=== PATIENT | male | born 1935 | race Caucasian/White ===

== ENCOUNTER → 2018-06-08 | Outpatient (CLI) | payer MEDICARE, OTHER ==
--- NOTE | 2018-06-08 10:31 | Diagnostic Imaging Report ---
PROCEDURE: Frontal and lateral views of the chest. COMPARISON: Patients [facility], CT, CT CHEST W/CONTRAST, 12/05/2009, 12:33. Patients [facility], DX, CHEST 2 VIEWS, 11/28/2009, 10:59. INDICATIONS: CONGESTION, WITH CHEST TIGHTNESS FOR 3 DAYS FINDINGS: Lines/tubes: Dual-lead left chest wall cardiac device. Lungs: The lungs are well inflated and clear. There is no evidence of pneumonia or pulmonary edema. Focal linear opacity in the right upper lobe extending to the hilum noted on the previous chest x-ray and CT has resolved. Pleura: There is no pleural effusion or pneumothorax. Heart and mediastinum: The heart and the mediastinum are normal. Aortic vascular calcification. Bones: No acute bony abnormality. Degenerative changes of the spine. IMPRESSION: No acute cardiopulmonary disease. Nolan Robles D.O. Dictated by: Nolan Robles D.O. on 06/08/2018 at 10:40 Electronically approved by: Nolan Robles D.O. on 06/08/2018 at 10:40
== END ==
LOC: RAD 09:42
PROVIDERS: ATTEND Internal Medicine
DX: J44.1 Chronic obstructive pulmonary disease with (acute) exacerbation (principal)
CPT/HCPCS: 71046

== ENCOUNTER → 2018-09-29 | Outpatient (CLI) | payer MEDICARE, OTHER ==
--- NOTE | 2018-09-29 16:52 | Diagnostic Imaging Report ---
EXAMINATION: CHEST 2 VIEWS INDICATION: ^Bronchitis; Chronic obstructive pulmonary disease with COMPARISON: None FINDINGS: PA and lateral views TUBES and LINES: Left-sided pacemaker with 2 intact leads. LUNGS: Lungs are well inflated. Bilateral peribronchial cuffing. Questionable focal airspace opacity in the left lateral lung base abutting the diaphragm. PLEURA: No pleural effusion or pneumothorax. HEART AND MEDIASTINUM: Cardiac size is mildly enlarged. There are atherosclerotic calcifications within the aorta. BONES AND SOFT TISSUES: No acute osseous lesion. Soft tissues are unremarkable. UPPER ABDOMEN: No free air under the diaphragm. IMPRESSION: 1. Bilateral peribronchial cuffing, which could represent viral etiology or reactive airway disease. 2. Questionable focal airspace opacity in the left lateral lung base abutting the diaphragm. Signed by: Dr. Pola Cedillo M.D. on 09/29/2018 4:49 PM
== END ==
LOC: RAD 14:55
PROVIDERS: ATTEND Internal Medicine
DX: J40 Bronchitis, not specified as acute or chronic (principal); J44.1 Chronic obstructive pulmonary disease with (acute) exacerbation
CPT/HCPCS: 71046

== ENCOUNTER → 2018-10-19 | Outpatient (CLI) | payer MEDICARE, OTHER ==
--- NOTE | 2018-10-19 15:32 | Diagnostic Imaging Report ---
EXAMINATION: CT scan of the chest without contrast. TECHNIQUE: Spiral CT images of the chest were performed from the lung apices to the level of the adrenal glands. No intravenous contrast was administered per referring physician request. Coronal and sagittal reformatted images were obtained. COMPARISON: Chest radiograph 09/29/2018 CLINICAL HISTORY:COPD, hemoptysis DISCUSSION: ABSENCE OF INTRAVENOUS CONTRAST DECREASES SENSITIVITY FOR DETECTION OF FOCAL LESIONS AND VASCULAR PATHOLOGY. LINES/TUBES: None. LUNGS AND AIRWAYS: Calcified granuloma right upper lobe. Reticular and groundglass opacities in the lower lobes compatible with subsegmental atelectasis. No gross consolidation, mass lesion, or bronchiectasis. The airways are normal, without endobronchial lesions. PLEURA: No pneumothorax or pleural effusions. HEART AND MEDIASTINUM: The thyroid gland is normal. No ectasia or aneurysmal dilatation of the thoracic aorta. Pulmonary outflow tract is of normal caliber. Aortic and mitral annular calcifications. Atherosclerotic coronary artery and great vessel origin calcifications. Normal heart size. No pericardial effusion. Left subclavian approach implantable cardiac device leads terminate in the right atrium and right ventricle. LYMPH NODES: There is no mediastinal, hilar or axillary lymphadenopathy. ABDOMEN: Visualized portions of the liver, spleen, pancreas, and adrenals are unremarkable. Partially visualized 7 cm low-attenuation lesion in the left kidney, average internal attenuation 0-5 Hounsfield units. BONES AND SOFT TISSUES: No focal soft tissue abnormalities. No osseous destructive lesions. Multilevel degenerative disc changes of the lower cervical and thoracic spine. IMPRESSION: Findings in the lung bases likely reflect subsegmental atelectasis, possibly with superimposed age-related fibrotic changes. No acute thoracic CT abnormalities. Atherosclerotic vascular disease. Partially visualized probable large left renal cyst. Suggest further evaluation with renal ultrasound. Signed by: Dr. Kostas Morley M.D. on 10/19/2018 3:28 PM
== END ==
LOC: CT 14:22
PROVIDERS: ATTEND Internal Medicine
DX: J44.9 Chronic obstructive pulmonary disease, unspecified (principal); N28.1 Cyst of kidney, acquired; Z87.01 Personal history of pneumonia (recurrent)
CPT/HCPCS: 71250

== ENCOUNTER → 2021-04-26 | Outpatient (CLI) | payer MEDICARE, OTHER ==
[~2021-04-26] MED LIST: IOPAMIDOL 300 MG/ML 15ML VIAL IT ONE; LEVOTHYROXINE88 MCG PO; LIDOCAINE HCL 1% LOCAL INJ 20 ML VIAL ONE; LOSARTAN POTAS100 MG PO; PRAVASTATIN SOD40 MG
== END ==
LOC: DX 08:17
PROVIDERS: ATTEND Internal Medicine
DX: M47.27 Other spondylosis with radiculopathy, lumbosacral region (principal)
CPT/HCPCS: 62304; 72132; 77003; J2001; Q9967

== ENCOUNTER → 2021-05-31 | Outpatient (CLI) | payer MEDICARE, OTHER ==
[~2021-05-31] MED LIST changes: -IOPAMIDOL 300 MG/ML 15ML VIAL IT ONE; -LIDOCAINE HCL 1% LOCAL INJ 20 ML VIAL ONE
== END ==
LOC: RAD 10:13
PROVIDERS: ATTEND Internal Medicine Pulmonary Disease
DX: R06.02 Shortness of breath (principal)
CPT/HCPCS: 71046

== ENCOUNTER 2022-07-15 08:18 | Inpatient (IN) | payer MEDICARE, OTHER ==
[~2022-07-15] VITALS: Ht 177.8 cm; Wt 117.9 kg
[~2022-07-15 08:18] MED LIST changes: +PRAVASTATIN SOD40 MG PO
[2022-07-15] MEDS ORDERED: ALBUTEROL/IPRATROPIUM 3 ML NEB NEB STA (08:23)
[2022-07-15] MEDS ORDERED: METHYLPREDNISOLONE SOD SUCC 125 MG/2ML VIAL IV STA (08:23)
[2022-07-15 08:43] LABS: BASOPHILS # (AUTO) 0.1 (0.0-0.1); BASOPHILS % 0.4 % (0.0-1.0); EOSINOPHILS # (AUTO) 0.2 (0.0-0.4); EOSINOPHILS % 1.5 % (0.0-6.0); HEMOGLOBIN 17.2 g/dL (14.0-18.0); LYMPHOCYTES # (AUTO) 2.7 (1.0-3.2); LYMPHOCYTES % 19.4 % (18.0-39.1); MEAN CORPUSCULAR HGB CONC 31.3 g/dL (31-35); MONOCYTES % 7.4 % (4.4-11.3); NEUTROPHILS # (AUTO) 9.8 (2.1-6.9); NEUTROPHILS % 70.8 % (38.7-80.0); PLATELET COUNT 333 x10e3/uL (140-360); RED BLOOD COUNT 5.73 x10e6/uL (4.3-5.7)
[2022-07-15] MEDS ORDERED: LASIX40 MG PO (08:51)
[2022-07-15] MEDS ORDERED: OMEPRAZOLE40 MG PO (08:51)
[2022-07-15] MEDS ORDERED: DIGOXIN125 MCG PO (08:51)
[2022-07-15] MEDS ORDERED: HYDROCHLOROTH12.5 MG PO (08:51)
[2022-07-15] MEDS ORDERED: PREDNISONE1 MG PO (08:51)
[2022-07-15] MEDS ORDERED: COREG6.25 MG PO (08:51)
[2022-07-15] MEDS ORDERED: JARDIANCE25 MG PO (08:51)
[2022-07-15] MEDS ORDERED: GABAPENTIN300 MG PO (08:51)
[2022-07-15] MEDS ORDERED: CLOPIDOGREL75 MG PO (08:51)
[2022-07-15] MEDS ORDERED: TRESIBA FL200 UNIT/1 SQ (08:51)
[2022-07-15 09:11] LABS: CREATINE KINASE MB 2.6 ng/mL (0-5.0)
[2022-07-15 09:44] LABS: ALBUMIN 3.3 g/dL (3.5-5.0); ALBUMIN/GLOBULIN RATIO 0.7 (0.8-2.0); ANION GAP 19.4 mmol/L (8-16); CALCIUM 8.9 mg/dL (8.4-10.2); CREATININE, SERUM 2.06 mg/dL (0.72-1.25); POTASSIUM 3.4 mmol/L (3.5-5.1)
[2022-07-15] MEDS ORDERED: SODIUM CHLORIDE 0.9% 500ML 500 ML IV STA (10:02)
[2022-07-15] MEDS ORDERED: SODIUM CHLORIDE 0.9% 100 ML ONE (10:21)
[2022-07-15] MEDS ORDERED: IOPAMIDOL 370 MG/ML 100 ML INFUS..BTL INJ ONE (10:22)
[2022-07-15] MEDS ORDERED: POTASSIUM CHLORIDE 20 MEQ TAB CR PO PRN (11:45)
[2022-07-15] MEDS ORDERED: SIMETHICONE 80 MG CHEW PO PRN (11:45)
[2022-07-15] MEDS ORDERED: BENZONATATE 100 MG CAP PO PRN (11:45)
[2022-07-15] MEDS ORDERED: DEXTROSE 50% SYRINGE 50 ML IV PRN ×2 (11:45)
[2022-07-15] MEDS ORDERED: HYDRALAZINE HCL 20 MG/ML VIAL IV PRN (11:45)
[2022-07-15] MEDS ORDERED: LIDOCAINE 4% PATCH TP PRN (11:45)
[2022-07-15] MEDS ORDERED: SODIUM CHLORIDE 0.9% 1000ML 1,000 ML IV SCH (11:45)
[2022-07-15] MEDS ORDERED: DIPHENHYDRAMINE HCL 25 MG CAP PO PRN (11:45)
[2022-07-15] MEDS ORDERED: ACETAMINOPHEN 325 MG TAB PO PRN (11:45)
[2022-07-15] MEDS ORDERED: DOCUSATE SODIUM 100 MG CAP PO PRN (11:45)
[2022-07-15] MEDS ORDERED: HYDROCODONE/APAP 5MG-325MG TAB PO PRN (11:45)
[2022-07-15] MEDS: ONDANSETRON HCL INJ 2MG/ML 2ML 2 MG/ML VIAL IV PRN ×2 (13:38→20:49)
[2022-07-15] MEDS ORDERED: ONDANSETRON HCL INJ 2MG/ML 2ML 2 MG/ML VIAL ONE ×2 (13:47→16:56)
[2022-07-15 14:01] LABS: CREATINE KINASE MB 2.6 ng/mL (0-5.0)
[2022-07-15] MEDS ORDERED: ONDANSETRON HCL INJ 2MG/ML 2ML 2 MG/ML VIAL IV STA (16:48)
[2022-07-15] MEDS ORDERED: ALBUTEROL SULF 0.083% NEB SOLN 3 ML NEB NEB STA (16:50)
[2022-07-15] MEDS ORDERED: PROMETHAZINE 25MG/SOD CHL 0.9% 50 ML IV ONE (16:53)
[2022-07-15] MEDS ORDERED: PROMETHAZINE 12.5MG/ NACL 0.9% 12.5 MG/50 ML BAG IV ONE (17:00)
[2022-07-15] MEDS: INSULIN LISPRO 100 UNIT/1 ML 3ML VIAL SQ SCH ×2 (17:04→22:21)
[2022-07-15 17:45] VITALS: BP 145/86
[2022-07-15 17:58] VITALS: BP 145/86
[2022-07-15] MEDS ORDERED: SODIUM CHLORIDE 0.9% 500ML 500 ML ONE (17:59)
[2022-07-15] MEDS: ENOXAPARIN SOD INJ 40 MG/0.4 ML SYR SC SCH (18:16)
[2022-07-15] MEDS: CARVEDILOL 3.125 MG TAB PO SCH (18:17)
[2022-07-15 18:33] VITALS: BP 145/86
[2022-07-15 19:55] LABS: CREATINE KINASE MB 2.5 ng/mL (0-5.0)
[2022-07-15 21:00] VITALS: BP 97/61
[2022-07-15] MEDS: PRAVASTATIN 20 MG TAB PO SCH (22:08)
[2022-07-15] MEDS: INSULIN GLARGINE 100 UNITS/ML VIAL SQ SCH (22:14)
[2022-07-16 05:55] LABS: BASOPHILS % 0.2 % (0.0-1.0); HEMATOCRIT 47.9 % (38.2-49.6); HEMOGLOBIN 16.5 g/dL (14.0-18.0); LYMPHOCYTES # (AUTO) 1.1 (1.0-3.2); LYMPHOCYTES % 10.7 % (18.0-39.1); MEAN CORPUSCULAR HEMOGLOBIN 31.5 pg (28-32); MEAN CORPUSCULAR HGB CONC 34.4 g/dL (31-35); MEAN CORPUSCULAR VOLUME 91.4 fL (81-99); MONOCYTES # (AUTO) 0.5 (0.2-0.8); MONOCYTES % 4.7 % (4.4-11.3); NEUTROPHILS # (AUTO) 8.9 (2.1-6.9); NEUTROPHILS % 83.9 % (38.7-80.0); PLATELET COUNT 324 x10e3/uL (140-360); RED BLOOD COUNT 5.24 x10e6/uL (4.3-5.7); RED CELL DISTRIBUTION WIDTH 13.2 % (11.7-14.4)
[2022-07-16 06:19] LABS: ALBUMIN 3.1 g/dL (3.5-5.0); ALBUMIN/GLOBULIN RATIO 0.7 (0.8-2.0); ANION GAP 21.7 mmol/L (8-16); CALCIUM 8.8 mg/dL (8.4-10.2); CREATININE, SERUM 2.22 mg/dL (0.72-1.25); POTASSIUM 3.7 mmol/L (3.5-5.1)
[2022-07-16] MEDS: LEVOTHYROXINE SODIUM 88 MCG TAB PO SCH (06:22)
[2022-07-16 06:29] LABS: CREATINE KINASE MB 2.6 ng/mL (0-5.0)
[2022-07-16] MEDS ORDERED: Vancomycin IV 1 GM in SODIUM CHLORIDE 0.9% 250ML 250 ML IV SCH (06:30)
[2022-07-16 08:00] VITALS: BP 97/61
[2022-07-16] MEDS: ONDANSETRON HCL INJ 2MG/ML 2ML 2 MG/ML VIAL IV PRN (08:18)
[2022-07-16] MEDS: PANTOPRAZOLE SOD 40 MG TABEC PO SCH (08:23)
[2022-07-16 08:52] VITALS: BP 109/58
[2022-07-16] MEDS ORDERED: NON-FORMULARY MEDICATION (Empagliflozin (Jardiance) 25 MG) PO SCH (09:00)
[2022-07-16] MEDS: LOSARTAN POTASSIUM 100 MG TAB PO SCH (09:00)
[2022-07-16] MEDS: CARVEDILOL 3.125 MG TAB PO SCH ×2 (09:00→18:04)
[2022-07-16] MEDS: PREDNISONE 10 MG TAB PO SCH (09:46)
[2022-07-16] MEDS: CLOPIDOGREL BISULFATE 75 MG TAB PO SCH (09:46)
[2022-07-16] MEDS: FUROSEMIDE 40 MG TAB PO SCH (09:46)
[2022-07-16] MEDS: DIGOXIN 0.125 MG TAB PO SCH ×2 (09:46→09:49)
[2022-07-16] MEDS: INSULIN LISPRO 100 UNIT/1 ML 3ML VIAL SQ SCH ×4 (09:55→20:31)
[2022-07-16] MEDS ORDERED: METOCLOPRAMIDE HCL 10 MG/2ML VIAL IV PRN (10:30)
[2022-07-16 12:40] VITALS: BP 113/61
[2022-07-16] MEDS: SODIUM CHLORIDE 0.9% 1000ML 1,000 ML IV SCH (13:13)
[2022-07-16] MEDS: METOCLOPRAMIDE HCL 10 MG TAB PO SCH ×3 (13:16→20:22)
[2022-07-16 16:54] VITALS: BP 136/84
[2022-07-16] MEDS: ENOXAPARIN SOD INJ 40 MG/0.4 ML SYR SC SCH (18:04)
[2022-07-16] MEDS: PRAVASTATIN 20 MG TAB PO SCH (20:21)
[2022-07-16] MEDS: MELATONIN 5 MG TABLET PO PRN (20:21)
[2022-07-16] MEDS: INSULIN GLARGINE 100 UNITS/ML VIAL SQ SCH (20:29)
[2022-07-16 21:00] VITALS: BP 124/63
[2022-07-16 21:12] VITALS: BP 124/63
[2022-07-17] VITALS (7 sets, daily range): BP systolic 102–140; BP diastolic 61–78
[2022-07-17 04:56] LABS: BASOPHILS % 0.2 % (0.0-1.0); EOSINOPHILS % 0.2 % (0.0-6.0); HEMATOCRIT 49.6 % (38.2-49.6); HEMOGLOBIN 15.4 g/dL (14.0-18.0); LYMPHOCYTES # (AUTO) 2.4 (1.0-3.2); LYMPHOCYTES % 18.8 % (18.0-39.1); MEAN CORPUSCULAR HEMOGLOBIN 30.3 pg (28-32); MEAN CORPUSCULAR VOLUME 97.6 fL (81-99); MONOCYTES % 7.8 % (4.4-11.3); NEUTROPHILS # (AUTO) 9.2 (2.1-6.9); NEUTROPHILS % 72.5 % (38.7-80.0); PLATELET COUNT 305 x10e3/uL (140-360); RED BLOOD COUNT 5.08 x10e6/uL (4.3-5.7); RED CELL DISTRIBUTION WIDTH 12.9 % (11.7-14.4)
[2022-07-17 05:22] LABS: ALBUMIN 2.8 g/dL (3.5-5.0); ALBUMIN/GLOBULIN RATIO 0.7 (0.8-2.0); ANION GAP 16.2 mmol/L (8-16); CALCIUM 8.4 mg/dL (8.4-10.2); CREATININE, SERUM 2.26 mg/dL (0.72-1.25); POTASSIUM 3.2 mmol/L (3.5-5.1)
[2022-07-17] MEDS: LEVOTHYROXINE SODIUM 88 MCG TAB PO SCH (06:27)
[2022-07-17] MEDS: Vancomycin IV 1 GM in SODIUM CHLORIDE 0.9% 250ML 250 ML IV SCH (08:53)
[2022-07-17] MEDS: SODIUM CHLORIDE 0.9% 1000ML 1,000 ML IV SCH (08:53)
[2022-07-17] MEDS: METOCLOPRAMIDE HCL 10 MG TAB PO SCH ×4 (08:54→22:09)
[2022-07-17] MEDS: LOSARTAN POTASSIUM 100 MG TAB PO SCH (08:54)
[2022-07-17] MEDS: FUROSEMIDE 40 MG TAB PO SCH (08:55)
[2022-07-17] MEDS: PANTOPRAZOLE SOD 40 MG TABEC PO SCH (08:55)
[2022-07-17] MEDS: CLOPIDOGREL BISULFATE 75 MG TAB PO SCH (08:55)
[2022-07-17] MEDS: PREDNISONE 10 MG TAB PO SCH (08:55)
[2022-07-17] MEDS: CARVEDILOL 3.125 MG TAB PO SCH ×2 (08:56→18:10)
[2022-07-17] MEDS: INSULIN LISPRO 100 UNIT/1 ML 3ML VIAL SQ SCH ×4 (09:03→22:13)
[2022-07-17] MEDS: ALBUTEROL/IPRATROPIUM 3 ML NEB NEB PRN ×3 (09:20→20:05)
[2022-07-17] MEDS ORDERED: GUAIFENESIN/CODEINE 5 ML LIQD PO ONE (10:00)
[2022-07-17 13:07] LABS: DIGOXIN 0.38 ng/mL (0.8-2.0)
[2022-07-17] MEDS: ENOXAPARIN SOD INJ 40 MG/0.4 ML SYR SC SCH (18:09)
[2022-07-17] MEDS: GUAIFENESIN/CODEINE 5 ML LIQD PO PRN (19:08)
[2022-07-17] MEDS: PRAVASTATIN 20 MG TAB PO SCH (22:09)
[2022-07-17] MEDS: MELATONIN 5 MG TABLET PO PRN (22:09)
[2022-07-17] MEDS: INSULIN GLARGINE 100 UNITS/ML VIAL SQ SCH (22:11)
[2022-07-18] MEDS: ALBUTEROL/IPRATROPIUM 3 ML NEB NEB PRN ×4 (02:40→19:30)
[2022-07-18] MEDS: LEVOTHYROXINE SODIUM 88 MCG TAB PO SCH (06:02)
[2022-07-18] MEDS: GUAIFENESIN/CODEINE 5 ML LIQD PO PRN (06:02)
[2022-07-18 06:07] LABS: ANION GAP 19.4 mmol/L (8-16); CALCIUM 8.5 mg/dL (8.4-10.2); CREATININE, SERUM 1.95 mg/dL (0.72-1.25); POTASSIUM 3.4 mmol/L (3.5-5.1)
[2022-07-18] MEDS: INSULIN LISPRO 100 UNIT/1 ML 3ML VIAL SQ SCH ×3 (07:30→16:30)
[2022-07-18 07:41] VITALS: BP 122/67
[2022-07-18] MEDS: METOCLOPRAMIDE HCL 10 MG TAB PO SCH ×4 (08:14→21:31)
[2022-07-18] MEDS: CLOPIDOGREL BISULFATE 75 MG TAB PO SCH (08:14)
[2022-07-18] MEDS: FUROSEMIDE 40 MG TAB PO SCH (08:14)
[2022-07-18] MEDS: PANTOPRAZOLE SOD 40 MG TABEC PO SCH (08:14)
[2022-07-18] MEDS: CARVEDILOL 3.125 MG TAB PO SCH ×2 (08:15→16:29)
[2022-07-18] MEDS: LOSARTAN POTASSIUM 100 MG TAB PO SCH (08:15)
[2022-07-18] MEDS: Vancomycin IV 1 GM in SODIUM CHLORIDE 0.9% 250ML 250 ML IV SCH (08:16)
[2022-07-18] MEDS: PREDNISONE 10 MG TAB PO SCH (08:16)
[2022-07-18 08:32] VITALS: BP 122/67
[2022-07-18] MEDS: ONDANSETRON HCL INJ 2MG/ML 2ML 2 MG/ML VIAL IV PRN (09:03)
[2022-07-18 11:38] VITALS: BP 125/75
[2022-07-18] MEDS: CEFAZOLIN SODIUM 2 GM in SODIUM CHLORIDE 0.9% 100 ML IV SCH (14:59)
[2022-07-18 15:33] VITALS: BP 136/74
[2022-07-18] MEDS: ENOXAPARIN SOD INJ 40 MG/0.4 ML SYR SC SCH (16:28)
[2022-07-18 20:00] VITALS: BP 153/97
[2022-07-18] MEDS: PRAVASTATIN 20 MG TAB PO SCH (21:30)
[2022-07-18] MEDS: MELATONIN 5 MG TABLET PO PRN (21:31)
[2022-07-19] MEDS: INSULIN LISPRO 100 UNIT/1 ML 3ML VIAL SQ SCH ×5 (02:26→23:34)
[2022-07-19] MEDS: INSULIN GLARGINE 100 UNITS/ML VIAL SQ SCH ×2 (02:27→23:34)
[2022-07-19] MEDS: CEFAZOLIN SODIUM 2 GM in SODIUM CHLORIDE 0.9% 100 ML IV SCH ×2 (02:27→15:21)
[2022-07-19] MEDS: LEVOTHYROXINE SODIUM 88 MCG TAB PO SCH (06:18)
[2022-07-19 07:34] VITALS: BP 145/81
[2022-07-19] MEDS: FUROSEMIDE 40 MG TAB PO SCH (08:14)
[2022-07-19] MEDS: PANTOPRAZOLE SOD 40 MG TABEC PO SCH (08:15)
[2022-07-19] MEDS: LOSARTAN POTASSIUM 100 MG TAB PO SCH (08:15)
[2022-07-19] MEDS: METOCLOPRAMIDE HCL 10 MG TAB PO SCH ×4 (08:15→20:48)
[2022-07-19] MEDS: PREDNISONE 10 MG TAB PO SCH (08:15)
[2022-07-19] MEDS: CLOPIDOGREL BISULFATE 75 MG TAB PO SCH (08:15)
[2022-07-19] MEDS: CARVEDILOL 3.125 MG TAB PO SCH ×2 (08:16→16:40)
[2022-07-19 08:30] VITALS: BP 145/81
[2022-07-19 11:21] VITALS: BP 137/87
[2022-07-19] MEDS: ONDANSETRON HCL INJ 2MG/ML 2ML 2 MG/ML VIAL IV PRN (13:11)
[2022-07-19] MEDS: ALBUTEROL/IPRATROPIUM 3 ML NEB NEB PRN (13:35)
[2022-07-19] MEDS: ALBUTEROL/IPRATROPIUM 3 ML NEB NEB SCH ×2 (15:15→19:50)
[2022-07-19 15:28] VITALS: BP 135/78
[2022-07-19] MEDS: ENOXAPARIN SOD INJ 40 MG/0.4 ML SYR SC SCH (16:37)
[2022-07-19 20:47] VITALS: BP 136/74
[2022-07-19] MEDS: MELATONIN 5 MG TABLET PO PRN (20:48)
[2022-07-19] MEDS: PRAVASTATIN 20 MG TAB PO SCH (20:48)
[2022-07-19 22:04] VITALS: BP 136/74
[2022-07-20] VITALS (7 sets, daily range): BP systolic 125–157; BP diastolic 71–104
[2022-07-20] MEDS: ALBUTEROL/IPRATROPIUM 3 ML NEB NEB SCH ×4 (02:25→11:20)
[2022-07-20] MEDS: CEFAZOLIN SODIUM 2 GM in SODIUM CHLORIDE 0.9% 100 ML IV SCH ×2 (03:53→14:17)
[2022-07-20] MEDS: LEVOTHYROXINE SODIUM 88 MCG TAB PO SCH (05:32)
[2022-07-20] MEDS: LOSARTAN POTASSIUM 100 MG TAB PO SCH (08:27)
[2022-07-20] MEDS: PANTOPRAZOLE SOD 40 MG TABEC PO SCH (08:27)
[2022-07-20] MEDS: METOCLOPRAMIDE HCL 10 MG TAB PO SCH ×4 (08:28→20:41)
[2022-07-20] MEDS: FUROSEMIDE 40 MG TAB PO SCH (08:28)
[2022-07-20] MEDS: CLOPIDOGREL BISULFATE 75 MG TAB PO SCH (08:28)
[2022-07-20] MEDS: PREDNISONE 10 MG TAB PO SCH (08:28)
[2022-07-20] MEDS: CARVEDILOL 3.125 MG TAB PO SCH ×2 (08:28→16:57)
[2022-07-20] MEDS: INSULIN LISPRO 100 UNIT/1 ML 3ML VIAL SQ SCH ×4 (08:29→23:06)
[2022-07-20] MEDS: ALBUTEROL/IPRATROPIUM 3 ML NEB NEB PRN ×2 (16:05→20:00)
[2022-07-20] MEDS: ENOXAPARIN SOD INJ 40 MG/0.4 ML SYR SC SCH (16:58)
[2022-07-20] MEDS: MELATONIN 5 MG TABLET PO PRN (20:41)
[2022-07-20] MEDS: PRAVASTATIN 20 MG TAB PO SCH (20:41)
[2022-07-20] MEDS: INSULIN GLARGINE 100 UNITS/ML VIAL SQ SCH (23:06)
[2022-07-21] VITALS (8 sets, daily range): BP systolic 126–149; BP diastolic 75–89
[2022-07-21] MEDS: ALBUTEROL/IPRATROPIUM 3 ML NEB NEB SCH ×4 (01:40→19:00)
[2022-07-21] MEDS: CEFAZOLIN SODIUM 2 GM in SODIUM CHLORIDE 0.9% 100 ML IV SCH ×2 (02:49→15:25)
[2022-07-21] MEDS: LEVOTHYROXINE SODIUM 88 MCG TAB PO SCH (06:00)
[2022-07-21 06:09] LABS: BASOPHILS % 0.3 % (0.0-1.0); EOSINOPHILS # (AUTO) 0.2 (0.0-0.4); EOSINOPHILS % 2.3 % (0.0-6.0); HEMATOCRIT 48.3 % (38.2-49.6); HEMOGLOBIN 16.2 g/dL (14.0-18.0); MEAN CORPUSCULAR HEMOGLOBIN 30.5 pg (28-32); MEAN CORPUSCULAR HGB CONC 33.5 g/dL (31-35); MEAN CORPUSCULAR VOLUME 90.8 fL (81-99); NEUTROPHILS # (AUTO) 7.1 (2.1-6.9); NEUTROPHILS % 67.9 % (38.7-80.0); PLATELET COUNT 329 x10e3/uL (140-360); RED BLOOD COUNT 5.32 x10e6/uL (4.3-5.7); RED CELL DISTRIBUTION WIDTH 13.1 % (11.7-14.4)
[2022-07-21 06:44] LABS: ALBUMIN 2.9 g/dL (3.5-5.0); ALBUMIN/GLOBULIN RATIO 0.7 (0.8-2.0); ALKALINE PHOSPHATASE 77 IU/L (40-150); BLOOD UREA NITROGEN 42 mg/dL (7-26); BUN/CREATININE RATIO 26 (6-25); CALCIUM 8.7 mg/dL (8.4-10.2); CARBON DIOXIDE 23 mmol/L (22-29); CHLORIDE 103 mmol/L (98-107); CREATININE, SERUM 1.62 mg/dL (0.72-1.25); GLUCOSE 125 mg/dL (74-118); SODIUM 140 mmol/L (136-145)
[2022-07-21 06:46] LABS: ALANINE AMINOTRANSFERASE < 6 IU/L (0-55)
[2022-07-21] MEDS: PANTOPRAZOLE SOD 40 MG TABEC PO SCH (08:08)
[2022-07-21] MEDS: FUROSEMIDE 40 MG TAB PO SCH (08:09)
[2022-07-21] MEDS: CARVEDILOL 3.125 MG TAB PO SCH ×2 (08:09→17:05)
[2022-07-21] MEDS: PREDNISONE 10 MG TAB PO SCH (08:09)
[2022-07-21] MEDS: METOCLOPRAMIDE HCL 10 MG TAB PO SCH ×4 (08:10→20:56)
[2022-07-21] MEDS: INSULIN LISPRO 100 UNIT/1 ML 3ML VIAL SQ SCH ×4 (08:10→21:10)
[2022-07-21] MEDS: CLOPIDOGREL BISULFATE 75 MG TAB PO SCH (08:10)
[2022-07-21] MEDS: LOSARTAN POTASSIUM 100 MG TAB PO SCH (08:10)
[2022-07-21] MEDS ORDERED: ONDANSETRON HCL 4 MG ORAL DISINTEGRATING TAB PO PRN (13:00)
[2022-07-21] MEDS: ENOXAPARIN SOD INJ 40 MG/0.4 ML SYR SC SCH (17:05)
[2022-07-21] MEDS: PRAVASTATIN 20 MG TAB PO SCH (20:57)
[2022-07-21] MEDS: MELATONIN 5 MG TABLET PO PRN (21:00)
[2022-07-21] MEDS: INSULIN GLARGINE 100 UNITS/ML VIAL SQ SCH (21:10)
[2022-07-22] VITALS: BP 125/73
[2022-07-22] MEDS: ALBUTEROL/IPRATROPIUM 3 ML NEB NEB SCH ×4 (01:10→19:10)
[2022-07-22] MEDS: CEFAZOLIN SODIUM 2 GM in SODIUM CHLORIDE 0.9% 100 ML IV SCH ×2 (03:28→14:02)
[2022-07-22 04:00] VITALS: BP 148/84
[2022-07-22] MEDS: LEVOTHYROXINE SODIUM 88 MCG TAB PO SCH (05:17)
[2022-07-22] MEDS: INSULIN LISPRO 100 UNIT/1 ML 3ML VIAL SQ SCH ×3 (08:30→16:58)
[2022-07-22] MEDS: LOSARTAN POTASSIUM 100 MG TAB PO SCH (08:49)
[2022-07-22] MEDS: PANTOPRAZOLE SOD 40 MG TABEC PO SCH (08:49)
[2022-07-22] MEDS: PREDNISONE 10 MG TAB PO SCH (08:50)
[2022-07-22] MEDS: CARVEDILOL 3.125 MG TAB PO SCH ×2 (08:50→17:56)
[2022-07-22] MEDS: METOCLOPRAMIDE HCL 10 MG TAB PO SCH ×3 (08:50→16:30)
[2022-07-22] MEDS: FUROSEMIDE 40 MG TAB PO SCH (08:50)
[2022-07-22] MEDS: CLOPIDOGREL BISULFATE 75 MG TAB PO SCH (08:50)
[2022-07-22 08:52] VITALS: BP 155/80
[2022-07-22 09:00] VITALS: BP 155/80
[2022-07-22 12:07] VITALS: BP 140/65
[2022-07-22] MEDS ORDERED: METOCLOPRAMIDE HCL 10 MG TAB PO PRN (12:45)
[2022-07-22 16:23] LABS: ANION GAP 20.4 mmol/L (8-16); CALCIUM 9.1 mg/dL (8.4-10.2); CREATININE, SERUM 1.81 mg/dL (0.72-1.25); POTASSIUM 4.4 mmol/L (3.5-5.1)
[2022-07-22 16:25] VITALS: BP 130/80
[2022-07-22] MEDS ORDERED: SODIUM CHLORIDE 0.9% 500ML 500 ML IV ONE ×2 (16:45→17:45)
[2022-07-22 19:00] LABS: ANION GAP 17.9 mmol/L (8-16); CALCIUM 8.2 mg/dL (8.4-10.2); CREATININE, SERUM 1.96 mg/dL (0.72-1.25); POTASSIUM 4.9 mmol/L (3.5-5.1)
== END 2022-07-22 19:41 | disposition home or self-care (01) | DRG 871 ==
LOC: ER 08:22 → ERHOLD 08:52 → MED/SURG2 17:13
PROVIDERS: ADMIT Internal Medicine; ATTEND Internal Medicine
PROC: 3E03329 Introduction of Other Anti-infective into Peripheral Vein, Percutaneous Approach (ICD-10-PCS; 2022-07-15)
PROC: 3E03329 Introduction of Other Anti-infective into Peripheral Vein, Percutaneous Approach (ICD-10-PCS; 2022-07-15)
PROC: 3E03329 Introduction of Other Anti-infective into Peripheral Vein, Percutaneous Approach (ICD-10-PCS; 2022-07-16)
PROC: 3E03329 Introduction of Other Anti-infective into Peripheral Vein, Percutaneous Approach (ICD-10-PCS; 2022-07-17)
PROC: 3E03329 Introduction of Other Anti-infective into Peripheral Vein, Percutaneous Approach (ICD-10-PCS; 2022-07-18)
PROC: 02HV33Z Insertion of Infusion Device into Superior Vena Cava, Percutaneous Approach (ICD-10-PCS; principal; 2022-07-21)
DX: A41.01 Sepsis due to Methicillin susceptible Staphylococcus aureus (principal); I50.43 Acute on chronic combined systolic (congestive) and diastolic (congestive) heart failure; J18.9 Pneumonia, unspecified organism; J44.1 Chronic obstructive pulmonary disease with (acute) exacerbation; I13.0 Hypertensive heart and chronic kidney disease with heart failure and stage 1 through stage 4 chronic kidney disease, or unspecified chronic kidney disease; R62.7 Adult failure to thrive; R09.02 Hypoxemia; E11.65 Type 2 diabetes mellitus with hyperglycemia; E78.00 Pure hypercholesterolemia, unspecified; N18.30 Chronic kidney disease, stage 3 unspecified; E11.22 Type 2 diabetes mellitus with diabetic chronic kidney disease; G47.30 Sleep apnea, unspecified; I08.0 Rheumatic disorders of both mitral and aortic valves; M47.9 Spondylosis, unspecified; G89.29 Other chronic pain; J98.4 Other disorders of lung; B34.9 Viral infection, unspecified; R11.2 Nausea with vomiting, unspecified; R53.81 Other malaise; M54.9 Dorsalgia, unspecified; L72.3 Sebaceous cyst; E66.9 Obesity, unspecified; E11.51 Type 2 diabetes mellitus with diabetic peripheral angiopathy without gangrene; K42.9 Umbilical hernia without obstruction or gangrene; T50.8X5A Adverse effect of diagnostic agents, initial encounter; E11.40 Type 2 diabetes mellitus with diabetic neuropathy, unspecified; E03.9 Hypothyroidism, unspecified; N32.89 Other specified disorders of bladder; N28.1 Cyst of kidney, acquired; K57.30 Diverticulosis of large intestine without perforation or abscess without bleeding; K41.90 Unilateral femoral hernia, without obstruction or gangrene, not specified as recurrent; I25.10 Atherosclerotic heart disease of native coronary artery without angina pectoris; Z79.02 Long term (current) use of antithrombotics/antiplatelets; Z79.84 Long term (current) use of oral hypoglycemic drugs; Z79.899 Other long term (current) drug therapy; Z79.4 Long term (current) use of insulin; Z79.52 Long term (current) use of systemic steroids; Z95.5 Presence of coronary angioplasty implant and graft; Z87.891 Personal history of nicotine dependence; Z83.3 Family history of diabetes mellitus; Z82.49 Family history of ischemic heart disease and other diseases of the circulatory system; Z95.810 Presence of automatic (implantable) cardiac defibrillator; Z79.82 Long term (current) use of aspirin; Z99.89 Dependence on other enabling machines and devices; Z77.090 Contact with and (suspected) exposure to asbestos; Z90.49 Acquired absence of other specified parts of digestive tract; Z96.652 Presence of left artificial knee joint; Z98.890 Other specified postprocedural states; Z85.828 Personal history of other malignant neoplasm of skin; Z68.37 Body mass index [BMI] 37.0-37.9, adult; Z66 Do not resuscitate
CPT/HCPCS: 36415; 36569; 71045; 71260; 74176; 80048; 80053; 80162; 82550; 82553; 82948; 83605; 83735; 83880; 84484; 85025; 87040; 87071; 87186; 87205; 87400; 93005; 93306; 94640; 94799; 99285; J1650; J1815; J2405; J2543; J2550; J2765; J3370; J7030; J7040; J7050; J7512; Q9967

== ENCOUNTER 2022-10-30 14:44 | Inpatient (IN) | payer MEDICARE, OTHER ==
[~2022-10-30] VITALS: Ht 177.8 cm; Wt 117.9 kg
[~2022-10-30 14:44] MED LIST changes: +CLOPIDOGREL75 MG PO; +COREG6.25 MG PO; +DIGOXIN125 MCG PO; +GABAPENTIN300 MG PO; +HYDROCHLOROTH12.5 MG PO; +JARDIANCE25 MG PO; +LASIX40 MG PO; +OMEPRAZOLE40 MG PO; +PREDNISONE1 MG PO; +TRESIBA FL200 UNIT/1 SQ
[2022-10-30] MEDS ORDERED: ACETAMINOPHEN 1000 MG/100 ML 100 ML IV ONE (15:28)
[2022-10-30] MEDS ORDERED: SODIUM CHLORIDE 0.9% 1000ML 1,000 ML ONE (15:28)
[2022-10-30 15:42] LABS: BASOPHILS % 0.3 % (0.0-1.0); EOSINOPHILS % 0.3 % (0.0-6.0); HEMATOCRIT 49.7 % (38.2-49.6); HEMOGLOBIN 16.8 g/dL (14.0-18.0); LYMPHOCYTES # (AUTO) 1.9 (1.0-3.2); LYMPHOCYTES % 16.2 % (18.0-39.1); MEAN CORPUSCULAR HEMOGLOBIN 32.2 pg (28-32); MEAN CORPUSCULAR HGB CONC 33.8 g/dL (31-35); MEAN CORPUSCULAR VOLUME 95.2 fL (81-99); MONOCYTES # (AUTO) 1.2 (0.2-0.8); MONOCYTES % 10.4 % (4.4-11.3); NEUTROPHILS # (AUTO) 8.4 (2.1-6.9); NEUTROPHILS % 72.4 % (38.7-80.0); PLATELET COUNT 275 x10e3/uL (140-360); RED BLOOD COUNT 5.22 x10e6/uL (4.3-5.7); RED CELL DISTRIBUTION WIDTH 13.2 % (11.7-14.4)
[2022-10-30 15:44] LABS: CLARITY,URINE SL CLOUDY (CLEAR); COLOR,URINE YELLOW (YELLOW); KETONES,URINE TRACE (NEGATIVE); LEUKOCYTE ESTERASE ,URINE NEGATIVE (NEGATIVE); NITRITE,URINE NEGATIVE (NEGATIVE); PROTEIN,URINE DIPSTICK 2+ (NEGATIVE); URINE UROBILINOGEN 0.2 mg/dL (0.2 - 1)
[2022-10-30 15:47] LABS: INR 1.14; PROTHROMBIN TIME 15.1 seconds (11.9-14.5)
[2022-10-30] MEDS ORDERED: ACETAMINOPHEN 1000 MG/100 ML IV STA (15:53)
[2022-10-30 15:54] LABS: BACTERIA,URINE MODERATE /HPF; WBC,URINE (MAN) 0-5 /HPF (0-5)
[2022-10-30 15:55] LABS: ALBUMIN/GLOBULIN RATIO 0.6 (0.8-2.0); ANION GAP 19.5 mmol/L (8-16); CALCIUM 9.4 mg/dL (8.4-10.2); CREATININE, SERUM 2.61 mg/dL (0.72-1.25); POTASSIUM 3.5 mmol/L (3.5-5.1)
[2022-10-30 16:05] LABS: B-TYPE NATRIURETIC PEPTIDE2 764.9 pg/mL (0-100)
[2022-10-30] MEDS ORDERED: DEXTROSE 50% SYRINGE 50 ML IV ONE ×3 (17:19→17:30)
[2022-10-30] MEDS ORDERED: HYDRALAZINE HCL 20 MG/ML VIAL IV STA (17:41)
[2022-10-30] MEDS ORDERED: METOPROLOL TARTRATE 50 MG TAB PO ONE (17:45)
[2022-10-30] MEDS ORDERED: DEXAMETHASONE SOD PHOS INJ 4 MG/ML SDV IV ONE (18:00)
[2022-10-30] MEDS ORDERED: ADVAIR 100-501 EACH INH (18:19)
[2022-10-30] MEDS ORDERED: ASPIRIN PO (18:19)
[2022-10-30] MEDS ORDERED: PANTOPRAZOLE SO40 MG PO (18:19)
[2022-10-30] MEDS ORDERED: DULERA 200 MCG/13 GM (18:19)
[2022-10-30] MEDS ORDERED: ALBUTEROL0.63 MG/3 NEB (18:19)
[2022-10-30] MEDS ORDERED: ALBUTEROL SULF 0.083% NEB SOLN 3 ML NEB NEB PRN (18:45)
[2022-10-30] MEDS ORDERED: ONDANSETRON HCL INJ 2MG/ML 2ML 2 MG/ML VIAL IV PRN (19:00)
[2022-10-30] MEDS ORDERED: Vancomycin IV 1 GM in SODIUM CHLORIDE 0.9% 250ML 250 ML IV ONE (19:00)
[2022-10-30 21:30] VITALS: BP 98/66
[2022-10-30] MEDS: ACETAMINOPHEN 325 MG TAB PO PRN (21:43)
[2022-10-30 23:12] VITALS: BP 98/66
[2022-10-30 23:20] VITALS: BP 98/66
[2022-10-30 23:21] VITALS: BP 98/66
[2022-10-30 23:31] VITALS: BP 98/66
[2022-10-31] VITALS (8 sets, daily range): BP systolic 95–133; BP diastolic 56–95
[2022-10-31] MEDS: ACETAMINOPHEN 325 MG TAB PO PRN (03:48)
[2022-10-31] MEDS: LEVOTHYROXINE SODIUM 88 MCG TAB PO SCH (05:28)
[2022-10-31 06:35] LABS: BASOPHILS % 0.1 % (0.0-1.0); HEMATOCRIT 45.4 % (38.2-49.6); HEMOGLOBIN 15.1 g/dL (14.0-18.0); LYMPHOCYTES % 10.6 % (18.0-39.1); MEAN CORPUSCULAR HEMOGLOBIN 32.2 pg (28-32); MEAN CORPUSCULAR HGB CONC 33.3 g/dL (31-35); MEAN CORPUSCULAR VOLUME 96.8 fL (81-99); MONOCYTES # (AUTO) 0.4 (0.2-0.8); MONOCYTES % 4.1 % (4.4-11.3); NEUTROPHILS # (AUTO) 8.3 (2.1-6.9); NEUTROPHILS % 84.8 % (38.7-80.0); PLATELET COUNT 228 x10e3/uL (140-360); RED BLOOD COUNT 4.69 x10e6/uL (4.3-5.7); RED CELL DISTRIBUTION WIDTH 13.1 % (11.7-14.4)
[2022-10-31 07:19] LABS: ALBUMIN 2.7 g/dL (3.5-5.0); ALBUMIN/GLOBULIN RATIO 0.6 (0.8-2.0); ANION GAP 23.7 mmol/L (8-16); CALCIUM 8.3 mg/dL (8.4-10.2); CREATININE, SERUM 2.69 mg/dL (0.72-1.25); POTASSIUM 4.7 mmol/L (3.5-5.1)
[2022-10-31] MEDS: SALMETEROL/FLUTICASONE 100/50 INH SCH (09:00)
[2022-10-31] MEDS ORDERED: PANTOPRAZOLE SOD 40 MG TABEC PO SCH (09:00)
[2022-10-31] MEDS: CLOPIDOGREL BISULFATE 75 MG TAB PO SCH (09:39)
[2022-10-31] MEDS ORDERED: DEXTROSE 50% SYRINGE 50 ML IV PRN (10:30)
[2022-10-31] MEDS ORDERED: LIDOCAINE 4% PATCH TP PRN (10:30)
[2022-10-31] MEDS ORDERED: HYDRALAZINE HCL 20 MG/ML VIAL IV PRN (10:30)
[2022-10-31] MEDS ORDERED: DIPHENHYDRAMINE HCL 25 MG CAP PO PRN (10:30)
[2022-10-31] MEDS ORDERED: ACETAMINOPHEN 325 MG TAB PO PRN (10:30)
[2022-10-31] MEDS ORDERED: SIMETHICONE 80 MG CHEW PO PRN (10:30)
[2022-10-31] MEDS ORDERED: MELATONIN 5 MG TABLET PO PRN (10:30)
[2022-10-31] MEDS ORDERED: DOCUSATE SODIUM 100 MG CAP PO PRN (10:30)
[2022-10-31] MEDS ORDERED: BENZONATATE 100 MG CAP PO PRN (10:30)
[2022-10-31] MEDS ORDERED: ALBUTEROL/IPRATROPIUM 3 ML NEB NEB PRN (10:30)
[2022-10-31] MEDS ORDERED: POTASSIUM CHLORIDE 20 MEQ TAB CR PO PRN (10:30)
[2022-10-31] MEDS: TRAMADOL/APAP 37.5MG-325MG TAB PO PRN ×2 (11:22→16:32)
[2022-10-31] MEDS ORDERED: REMDESIVIR 100MG 200 MG in SODIUM CHLORIDE 0.9% 100 ML IV ONE (13:00)
[2022-10-31] MEDS: DEXAMETHASONE 4 MG TAB PO SCH (14:22)
[2022-10-31] MEDS: CARVEDILOL 3.125 MG TAB PO SCH (16:32)
[2022-10-31] MEDS: ENOXAPARIN 30 MG/0.3 ML SYR SC SCH (16:32)
[2022-10-31] MEDS ORDERED: ENOXAPARIN SOD INJ 40 MG/0.4 ML SYR SC SCH (17:00)
[2022-11-01] VITALS (7 sets, daily range): BP systolic 92–114; BP diastolic 45–72
[2022-11-01] MEDS: LEVOTHYROXINE SODIUM 88 MCG TAB PO SCH (06:11)
[2022-11-01] MEDS: SALMETEROL/FLUTICASONE 100/50 INH SCH (06:29)
[2022-11-01 06:39] LABS: BASOPHILS % 0.2 % (0.0-1.0); HEMATOCRIT 43.6 % (38.2-49.6); HEMOGLOBIN 14.5 g/dL (14.0-18.0); LYMPHOCYTES # (AUTO) 0.7 (1.0-3.2); MEAN CORPUSCULAR HEMOGLOBIN 31.7 pg (28-32); MEAN CORPUSCULAR HGB CONC 33.3 g/dL (31-35); MEAN CORPUSCULAR VOLUME 95.2 fL (81-99); MONOCYTES # (AUTO) 0.5 (0.2-0.8); MONOCYTES % 3.6 % (4.4-11.3); NEUTROPHILS # (AUTO) 13.4 (2.1-6.9); NEUTROPHILS % 89.6 % (38.7-80.0); PLATELET COUNT 258 x10e3/uL (140-360); RED BLOOD COUNT 4.58 x10e6/uL (4.3-5.7); RED CELL DISTRIBUTION WIDTH 12.6 % (11.7-14.4)
[2022-11-01 06:51] LABS: ANION GAP 20.5 mmol/L (8-16); CALCIUM 8.5 mg/dL (8.4-10.2); CREATININE, SERUM 2.36 mg/dL (0.72-1.25); MAGNESIUM 2.4 MG/DL (1.3-2.1); POTASSIUM 4.5 mmol/L (3.5-5.1)
[2022-11-01 07:13] LABS: THYROID STIMULATING HORMONE 1.038 uIU/mL (0.350-4.940)
[2022-11-01] MEDS: CARVEDILOL 3.125 MG TAB PO SCH ×2 (08:23→17:13)
[2022-11-01] MEDS: ASPIRIN 81 MG ENTERIC COATED PO SCH (08:23)
[2022-11-01] MEDS: PANTOPRAZOLE SOD 40 MG TABEC PO SCH (08:23)
[2022-11-01] MEDS: CLOPIDOGREL BISULFATE 75 MG TAB PO SCH (08:23)
[2022-11-01] MEDS ORDERED: NON-FORMULARY MEDICATION ([Aspirin] 81 MG) PO SCH (09:00)
[2022-11-01] MEDS: TRAMADOL/APAP 37.5MG-325MG TAB PO PRN (09:18)
[2022-11-01] MEDS: REMDESIVIR 100MG 100 MG in SODIUM CHLORIDE 0.9% 100 ML IV SCH (14:54)
[2022-11-01] MEDS: DEXAMETHASONE 4 MG TAB PO SCH (14:54)
[2022-11-01] MEDS: ENOXAPARIN 30 MG/0.3 ML SYR SC SCH (17:13)
[2022-11-01] MEDS ORDERED: Vancomycin IV 1 GM in SODIUM CHLORIDE 0.9% 250ML 250 ML IV ONE (18:00)
[2022-11-02] VITALS (7 sets, daily range): BP systolic 117–134; BP diastolic 64–79
[2022-11-02] MEDS: TRAMADOL/APAP 37.5MG-325MG TAB PO PRN (03:01)
[2022-11-02] MEDS: LEVOTHYROXINE SODIUM 88 MCG TAB PO SCH (05:26)
[2022-11-02 06:12] LABS: BASOPHILS % 0.1 % (0.0-1.0); HEMOGLOBIN 15.3 g/dL (14.0-18.0); LYMPHOCYTES # (AUTO) 0.8 (1.0-3.2); LYMPHOCYTES % 6.1 % (18.0-39.1); MEAN CORPUSCULAR HEMOGLOBIN 31.7 pg (28-32); MEAN CORPUSCULAR VOLUME 93.2 fL (81-99); MONOCYTES # (AUTO) 0.4 (0.2-0.8); NEUTROPHILS # (AUTO) 11.3 (2.1-6.9); NEUTROPHILS % 89.8 % (38.7-80.0); PLATELET COUNT 268 x10e3/uL (140-360); RED BLOOD COUNT 4.83 x10e6/uL (4.3-5.7); RED CELL DISTRIBUTION WIDTH 12.8 % (11.7-14.4)
[2022-11-02 06:51] LABS: ANION GAP 19.9 mmol/L (8-16); CALCIUM 8.8 mg/dL (8.4-10.2); CREATININE, SERUM 2.19 mg/dL (0.72-1.25); POTASSIUM 4.9 mmol/L (3.5-5.1)
[2022-11-02] MEDS: SALMETEROL/FLUTICASONE 100/50 INH SCH ×3 (07:26→08:20)
[2022-11-02] MEDS ORDERED: DEXTROSE 50% SYRINGE 50 ML IV PRN (08:00)
[2022-11-02] MEDS: CLOPIDOGREL BISULFATE 75 MG TAB PO SCH (08:12)
[2022-11-02] MEDS: PANTOPRAZOLE SOD 40 MG TABEC PO SCH (08:12)
[2022-11-02] MEDS: CARVEDILOL 3.125 MG TAB PO SCH ×2 (08:13→17:08)
[2022-11-02] MEDS: ASPIRIN 81 MG ENTERIC COATED PO SCH (08:13)
[2022-11-02] MEDS: DEXAMETHASONE 4 MG TAB PO SCH (12:07)
[2022-11-02] MEDS: INSULIN LISPRO 100 UNIT/1 ML 3ML VIAL SQ SCH ×3 (12:08→22:00)
[2022-11-02] MEDS: REMDESIVIR 100MG 100 MG in SODIUM CHLORIDE 0.9% 100 ML IV SCH (14:08)
[2022-11-02] MEDS: INSULIN GLARGINE 100 UNITS/ML VIAL SQ SCH ×2 (14:39→21:58)
[2022-11-02] MEDS: ENOXAPARIN 30 MG/0.3 ML SYR SC SCH (17:08)
[2022-11-02] MEDS ORDERED: INSULIN GLARGINE 100 UNITS/ML VIAL SQ SCH (21:00)
[2022-11-03] VITALS (8 sets, daily range): BP systolic 113–152; BP diastolic 62–82
[2022-11-03] MEDS: LEVOTHYROXINE SODIUM 88 MCG TAB PO SCH (05:07)
[2022-11-03 05:53] LABS: BASOPHILS % 0.1 % (0.0-1.0); HEMATOCRIT 45.4 % (38.2-49.6); HEMOGLOBIN 15.7 g/dL (14.0-18.0); LYMPHOCYTES # (AUTO) 0.9 (1.0-3.2); LYMPHOCYTES % 9.5 % (18.0-39.1); MEAN CORPUSCULAR HGB CONC 34.6 g/dL (31-35); MEAN CORPUSCULAR VOLUME 92.5 fL (81-99); MONOCYTES # (AUTO) 0.3 (0.2-0.8); MONOCYTES % 2.9 % (4.4-11.3); NEUTROPHILS # (AUTO) 8.6 (2.1-6.9); NEUTROPHILS % 86.8 % (38.7-80.0); PLATELET COUNT 287 x10e3/uL (140-360); RED BLOOD COUNT 4.91 x10e6/uL (4.3-5.7); RED CELL DISTRIBUTION WIDTH 12.6 % (11.7-14.4)
[2022-11-03 06:23] LABS: ANION GAP 15.8 mmol/L (8-16); CALCIUM 8.7 mg/dL (8.4-10.2); CREATININE, SERUM 1.71 mg/dL (0.72-1.25); POTASSIUM 4.8 mmol/L (3.5-5.1)
[2022-11-03] MEDS: SALMETEROL/FLUTICASONE 100/50 INH SCH (06:56)
[2022-11-03] MEDS: PANTOPRAZOLE SOD 40 MG TABEC PO SCH (08:28)
[2022-11-03] MEDS: CLOPIDOGREL BISULFATE 75 MG TAB PO SCH (08:28)
[2022-11-03] MEDS: CARVEDILOL 3.125 MG TAB PO SCH ×2 (08:28→17:35)
[2022-11-03] MEDS: ASPIRIN 81 MG ENTERIC COATED PO SCH (08:28)
[2022-11-03] MEDS: INSULIN LISPRO 100 UNIT/1 ML 3ML VIAL SQ SCH ×4 (08:30→21:15)
[2022-11-03] MEDS: INSULIN GLARGINE 100 UNITS/ML VIAL SQ SCH ×2 (08:30→21:15)
[2022-11-03 08:33] LABS: LYMPHOCYTES % (MANUAL) 9 % (19-48); MONOCYTES % (MANUAL) 2 % (3.4-9.0); NEUTROPHILS % (MANUAL) 89 % (40-74); PLATELET ESTIMATE ADEQUATE; PLATELET MORPHOLOGY COMMENT NORMAL; RBC MORPHOLOGY COMMENT NORMAL
[2022-11-03] MEDS: REMDESIVIR 100MG 100 MG in SODIUM CHLORIDE 0.9% 100 ML IV SCH (12:42)
[2022-11-03] MEDS ORDERED: DEXAMETHASONE 4 MG TAB PO SCH (13:00)
[2022-11-03] MEDS ORDERED: ONDANSETRON HCL 4 MG ORAL DISINTEGRATING TAB PO PRN (13:30)
[2022-11-03] MEDS: ENOXAPARIN 30 MG/0.3 ML SYR SC SCH (17:35)
[2022-11-04 00:10] VITALS: BP 120/64
[2022-11-04 04:51] VITALS: BP 121/66
[2022-11-04] MEDS ORDERED: SODIUM CHLORIDE 0.9% 250ML 250 ML ONE (06:03)
[2022-11-04] MEDS: LEVOTHYROXINE SODIUM 88 MCG TAB PO SCH (06:15)
[2022-11-04 08:42] VITALS: BP 137/83
[2022-11-04 09:00] VITALS: BP 137/83
[2022-11-04] MEDS: CLOPIDOGREL BISULFATE 75 MG TAB PO SCH (09:11)
[2022-11-04] MEDS: CARVEDILOL 3.125 MG TAB PO SCH ×2 (09:12→16:44)
[2022-11-04] MEDS: ASPIRIN 81 MG ENTERIC COATED PO SCH (09:12)
[2022-11-04] MEDS: INSULIN LISPRO 100 UNIT/1 ML 3ML VIAL SQ SCH ×2 (09:13→12:09)
[2022-11-04] MEDS: INSULIN GLARGINE 100 UNITS/ML VIAL SQ SCH (09:13)
[2022-11-04] MEDS: PANTOPRAZOLE SOD 40 MG TABEC PO SCH (09:27)
[2022-11-04] MEDS ORDERED: CIPRO250 MG PO (09:53)
[2022-11-04 11:46] VITALS: BP 132/78
[2022-11-04] MEDS: REMDESIVIR 100MG 100 MG in SODIUM CHLORIDE 0.9% 100 ML IV SCH (14:54)
[2022-11-04 15:49] VITALS: BP 134/65
[2022-11-04] MEDS: ENOXAPARIN 30 MG/0.3 ML SYR SC SCH (16:44)
== END 2022-11-04 17:28 | disposition home or self-care (01) | DRG 871 ==
LOC: ER 14:59 → ERHOLD 18:43 → MED/SURG2 21:06
PROVIDERS: ADMIT Internal Medicine; ATTEND Internal Medicine
PROC: XW033E5 Introduction of Remdesivir Anti-infective into Peripheral Vein, Percutaneous Approach, New Technology Group 5 (ICD-10-PCS; principal; 2022-10-31)
PROC: 3E03329 Introduction of Other Anti-infective into Peripheral Vein, Percutaneous Approach (ICD-10-PCS; 2022-10-31)
DX: A41.50 Gram-negative sepsis, unspecified (principal); U07.1 COVID-19; I50.32 Chronic diastolic (congestive) heart failure; I13.0 Hypertensive heart and chronic kidney disease with heart failure and stage 1 through stage 4 chronic kidney disease, or unspecified chronic kidney disease; G62.81 Critical illness polyneuropathy; M25.512 Pain in left shoulder; E11.22 Type 2 diabetes mellitus with diabetic chronic kidney disease; Z95.810 Presence of automatic (implantable) cardiac defibrillator; I25.10 Atherosclerotic heart disease of native coronary artery without angina pectoris; Z95.5 Presence of coronary angioplasty implant and graft; J44.9 Chronic obstructive pulmonary disease, unspecified; E78.5 Hyperlipidemia, unspecified; E11.69 Type 2 diabetes mellitus with other specified complication; E78.00 Pure hypercholesterolemia, unspecified; G47.33 Obstructive sleep apnea (adult) (pediatric); G89.29 Other chronic pain; I35.0 Nonrheumatic aortic (valve) stenosis; N18.32 Chronic kidney disease, stage 3b; R25.1 Tremor, unspecified; N28.1 Cyst of kidney, acquired; J61 Pneumoconiosis due to asbestos and other mineral fibers; Z96.652 Presence of left artificial knee joint; Z85.828 Personal history of other malignant neoplasm of skin; R29.6 Repeated falls; Z20.822 Contact with and (suspected) exposure to COVID-19; E11.51 Type 2 diabetes mellitus with diabetic peripheral angiopathy without gangrene; A41.89 Other specified sepsis; R65.20 Severe sepsis without septic shock; R06.03 Acute respiratory distress
CPT/HCPCS: 36415; 51700; 70450; 71045; 71250; 72125; 72131; 74176; 80048; 80053; 81001; 82550; 82553; 82948; 83605; 83735; 83880; 84443; 84484; 85025; 85610; 85730; 87040; 87071; 87086; 87186; 87205; 93005; 94664; 94799; 96361; 96372; 99285; J0248; J0692; J1100; J1650; J1815; J7030; J7050; J7799